=== PATIENT | male | born 1995 | race Caucasian/White ===

== ENCOUNTER 2016-02-11 11:39 | Emergency (ER) | payer MEDICAID ==
[~2016-02-11] VITALS: Ht 177.8 cm; Wt 103.5 kg
[~2016-02-11 11:39] MED LIST: CLIN-73 PO; HYDR-906 PO; IBUP-1542 PO; IBUP800T25 PO; PRED20TA PO
[2016-02-11 11:48] VITALS: Ht 177.8 cm; Wt 103.5 kg
--- NOTE | 2016-02-11 12:26 | ERD ---
ER Documentation Chief Complaint Date/Time DATE: 02/11/16 TIME: 12:24 Chief Complaint cough x 1 week HPI This patient is a 21-year-old male presenting to the emergency department for cough x 1 week. He states the cough is productive of sputum and he additionally reports chest pain and tightness during coughing. He denies a history of pneumonia or bronchitis. He states he has never had a chest x-ray. He reports a flulike illness approximately 2 weeks ago before the cough started with high fevers however these fevers have now resolved. He denies any sore throat, ear pain, myalgia, or other symptoms. There are no other alleviating or exacerbating factors at this time. ROS All systems reviewed and are negative except as per history of present illness. Medications Home Meds Active Scripts Dextromethorphan Hb-Promethazine Hcl (Promethazine DM Syrup) 473 Ml Syrup, 5 ML PO Q6 Y for COUGH, #100 ML Prov:ELZBIETA FREEDMAN PA-C 02/11/16 Benzonatate* (Benzonatate*) 200 Mg Capsule, 200 MG PO TID Y for COUGH, #20 CAP Prov:ELZBIETA FREEDMAN PA-C 02/11/16 Hydrocodone/Acetaminophen ([place] 5-325 Tablet) 1 Each Tablet, 1 TAB PO Q6H Y for PAIN, #7 TAB Prov:LASHONDA HERZOG DO 01/31/16 Ibuprofen* (Motrin*) 800 Mg Tab, 800 MG PO Q6H Y for PAIN AND OR ELEVATED TEMP, #30 TAB Prov:LASHONDA HERZOG DO 01/31/16 Clindamycin Hcl* (Clindamycin Hcl*) 300 Mg Capsule, 300 MG PO TID for 10 Days, CAP Prov:LASHONDA HERZOG DO 01/31/16 Ibuprofen* (Ibuprofen*) 600 Mg Tablet, 600 MG PO Q6, #30 TAB Prov:NANCY EDGE PA-C 01/21/15 Prednisone* (Prednisone*) 20 Mg Tab, 40 MG PO DAILY for 5 Days, TAB Prov:NANCY EDGE PA-C 01/21/15 Allergies Allergies: Coded Allergies: Penicillins (Verified Allergy, Unknown, SWELLING, 01/20/15) PMhx/Soc History of Surgery: No Anesthesia Reaction: No Hx Neurological Disorder: No Hx Respiratory Disorders: No Hx Cardiac Disorders: No Hx Psychiatric Problems: No Hx Miscellaneous Medical Probl: No Hx Alcohol Use: No Hx Substance Use: Yes (daily marijuana) Hx Tobacco Use: No Smoking Status: Never smoker Physical Exam Vitals Vital Signs Date Time Temp Pulse Resp B/P Pulse Ox O2 Delivery O2 Flow Rate FiO2 02/11/16 11:48 97.8 100 20 124/68 97 Physical Exam Const: Patient is resting comfortably in no acute distress. Head: Atraumatic Eyes: Normal Conjunctiva ENT: Normal External Ears, Nose and Mouth. Neck: Full range of motion. No meningismus. Resp: Mild inspiratory crackles to the left lower lung field. There are no wheezes, rales, or rhonchi. Cardio: Regular rate and rhythm, no murmurs Abd: Soft, non tender, non distended. Normal bowel sounds Skin: No petechiae or rashes Back: No midline or flank tenderness Ext: No cyanosis, or edema Neur: Awake and alert Psych: Normal Mood and Affect Procedures/MDM ED course: Imaging: chest xray: Stable and unremarkable chest x-ray. MDM: 21-year-old male presents to the emergency department with complaints of cough for 1 week. On physical examination of the lungs there are slight inspiratory crackles auscultated to the left lower lung field. Chest x-ray was ordered looking for any signs of pneumonia, bronchitis, or hyperinflation of the lungs and was unremarkable. The patient likely has a cough due to an upper respiratory infection that is viral in etiology. The patient will be treated as an outpatient with medications to treat symptoms including benzonatate and Promethazine DM. At this time I do not suspect that there is a pulmonary embolism, pneumonia, bronchitis, or other lung abnormalities based on physical examination and radiology findings. The patient is stable for discharge and he is to follow-up with his primary care doctor at the next available appointment. Patient is to return to the emergency department or an alternative clinic as needed or if symptoms persist. The patient is in agreement with the plan and all questions were answered. Departure Diagnosis: Primary Impression: Cough Additional Impression: Viral syndrome Condition: Stable Patient Instructions: Cough, Chronic, Uncertain Cause, (Adult) ELZBIETA FREEDMAN PA-C Feb 11, 2016 12:26
--- NOTE | 2016-02-11 12:50 | RADRPT ---
PROCEDURE: XR Chest. CLINICAL INDICATION: Cough TECHNIQUE: Single frontal chest x-ray. COMPARISON: 01/20/2015 FINDINGS: The lungs are clear. No focal opacification is seen. The cardiomediastinal silhouette is unremarka ble. The osseous structures are unremarkable. Appearances are identical and stable when compared t o the prior study. IMPRESSION: 1. Stable and unremarkable chest x-ray. RPTAT: HMJB .Amado Bonds MD, MD Date Time Electronically viewed and signed by .Amado Bonds MD, on 02/11/2016 12:50 .B/
[2016-02-11] MEDS ORDERED: D-ME473S18 PO (12:56)
[2016-02-11] MEDS ORDERED: BENZ200C43 PO (12:56)
== END 2016-02-11 13:18 | disposition home or self-care (01) ==
LOC: FTE 11:39
DX: R05 Cough (principal)
CPT/HCPCS: 71010; Z7502